=== PATIENT | female | born 1950 | race Caucasian/White ===

== ENCOUNTER → 2022-02-17 | Outpatient (CLI) | payer MEDICARE | END | disposition home or self-care (01) | LOC: RAH 09:57 | PROVIDERS: ATTEND Physician Assistant Medical | DX: Z12.31 Encounter for screening mammogram for malignant neoplasm of breast (principal); M76.62 Achilles tendinitis, left leg; Z00.01 Encounter for general adult medical examination with abnormal findings | CPT/HCPCS: 73721; 77067 ==

== ENCOUNTER → 2023-08-21 | Outpatient (CLI) | payer MEDICARE | END | disposition home or self-care (01) | LOC: RAH 13:00 | PROVIDERS: ATTEND Physician Assistant Medical | DX: Z12.31 Encounter for screening mammogram for malignant neoplasm of breast (principal); R92.323 Mammographic fibroglandular density, bilateral breasts | CPT/HCPCS: 77067 ==

== ENCOUNTER → 2025-02-12 | Outpatient (CLI) | payer MEDICARE | END | disposition home or self-care (01) | LOC: RAH 14:06 | PROVIDERS: ATTEND Physician Assistant Medical | DX: Z12.31 Encounter for screening mammogram for malignant neoplasm of breast (principal) | CPT/HCPCS: 77067 ==